=== PATIENT | male | born 1930 | race African-American/Black ===

== ENCOUNTER 2017-01-17 09:41 | Inpatient (IN) | payer MEDICARE ==
[~2017-01-17 09:41] MED LIST: ISOVUE-370 76%-LOCM 1 ML ONE; Iopamidol 370 76% 50 ML VIAL FS ONE
[2017-01-17] MEDS ORDERED: Levofloxacin 500 mg/D5W 100 ml Premix Bag ONE (10:13)
[2017-01-17 10:37] LABS: #Eosinphils 0.3 thou/uL (0.0-0.7); #Lymphocytes 1.4 thou/uL (1.20-3.40); #Monocytes 0.5 thou/uL (0.11-0.59); #Neutrophils 3.7 thou/uL (1.40-6.50); %Basophils 0.6 % (0.0-1.0); %Eosinophils 4.4 % (0.0-10.0); %Monocytes 8.6 % (0.0-10.0); Mean Platelet Volume 7.8 fL (7.4-10.4); Red Blood Cell (RBC) Count 3.83 mill/uL (4.70-6.10); White Blood Cell (WBC) Count 5.9 thou/uL (4.8-10.8)
--- NOTE | 2017-01-17 11:01 | RAD ---
AP VIEW CHEST: HISTORY: Fever. FINDINGS: AP view chest is obtained on 01/17/17. Comparison is made to previous exam from 12/05/14. AP view chest demonstrates the lungs to be well aerated. No evidence of active intrathoracic diseas e is seen. No evidence of effusions, pneumonia, or pneumothorax is seen. IMPRESSION: Unremarkable AP view chest. POS: [facility]
[2017-01-17] MEDS ORDERED: Ondansetron ODT 4 MG TAB SL PRN (11:32)
[2017-01-17] MEDS ORDERED: Ondansetron HCl/PF 4 MG/2 ML Vial IVP PRN (11:32)
[2017-01-17] MEDS ORDERED: Acetaminophen 325 MG TAB PO PRN ×2 (11:32→11:49)
[2017-01-17] MEDS ORDERED: Bisacodyl 5 MG TAB PO PRN (11:49)
[2017-01-17] MEDS ORDERED: Guaifenesin DM 100-10/5 ML UDCUP PO PRN (11:49)
[2017-01-17 11:55] LABS: ALT (SGPT) 35 U/L (8-55); AST (SGOT) 28 U/L (5-34); Alkaline Phosphatase 179 U/L (40-150); Anion Gap 14 mmol/L (10-20); BUN (Urea Nitrogen) 15 mg/dL (8.4-25.7); Bilirubin, Total 0.4 mg/dL (0.2-1.2); CK (CPK) 72 U/L (30-200); Calc. Creatinine Clearance 0 mL/min (70-130); Calcium 9.1 mg/dL (7.8-10.44); Carbon Dioxide 22 mmol/L (23-31); Chloride 108 mmol/L (98-107); Estimated GFR-MDRD 76; Globulin 3.8 g/dL (2.4-3.5); Protein, Total 7.3 g/dL (5.8-8.1)
--- NOTE | 2017-01-17 12:12 | PDOC.EVN ---
Event Note - Event Note Event Note: pt seen and examined . H & P dictated # [id number]
--- NOTE | 2017-01-17 12:23 | RAD ---
TWO VIEWS LEFT HIP: HISTORY: Left hip pain. FINDINGS: AP and frogleg views of the left hip are obtained. Surgical clips seen in the pelvis. A left hip complete orthoplasty is in place. There is a long sh aft component with cables stabilizing the proximal left femur. No evidence of acute fracture or sub luxations seen. Postsurgical changes. POS: [facility]
[2017-01-17 12:33] VITALS: BMI 31.1
--- NOTE | 2017-01-17 13:21 | HP ---
DATE OF SERVICE: 01/17/2017 CHIEF COMPLAINT: Bacteremia. HISTORY OF PRESENT ILLNESS: The patient is an 86-year-old male with a past medical history signific ant for Paget's disease, hypertension, prostate cancer, coronary artery disease, and hyperlipidemia. The patient was in usual state of health when he started having fever and chills. The patient als o has a left hip pain which is chronic with this got flared up in the past 1 week as well. For all this problem, he went to his PCP who did blood cultures and they came back presumptively positive fo r E. coli. For this reason, the patient was sent to the ER to be admitted for IV antibiotic. At th e time of the visit, the patient is comfortable. Patient also states he has been having intermitten t abdominal pain with cramps for past several weeks and is getting an outpatient GI workup. He jennifer es any diarrhea at this time. No abdominal pain at this time. The patient states he does have pros whitaker problems and has multiple urinations during the night. He denies any dysuria, burning or hemat uria. He denies any significant hip or knee pain at this time. Previous records were reviewed. The patient denies any exposure to any sick people. He has not traveled anywhere recently. He says he is acutely short of breath, but at this time currently denies any shortness of breath. FAMILY HISTORY: Reviewed and noncontributory for this admission. PAST MEDICAL HISTORY: The patient does have history of chronic kidney disease. PAST SURGICAL HISTORY: The patient is status post prostatectomy, cardiac catheterization, bilateral knee arthroscopy and left hip replacement x2. The patient is status post cholecystectomy. SOCIAL HISTORY: The patient is retired, lives at home with his family. He denies alcohol, smoking or substance abuse. REVIEW OF SYSTEMS: CONSTITUTIONAL: Fever and chills as mentioned above. No history of weight loss or weight gain. HEENT: No visual disturbance, headache, hearing problems or difficulty chewing or swallowing. No n nile congestion. CARDIAC: No chest pain, palpitations, edema, or syncope. PULMONARY: No wheezing, cough, asthma, hemoptysis. GI: History of intermittent abdominal pain as mentioned above. Denies any constipation, diarrhea, black stools or blood in stools. GENITOURINARY: History of frequent urinations as mentioned above. No history of kidney stones or f lank pain. MUSCULOSKELETAL: As per history of present illness. The patient denies any pain in the right side. He denies any history of gout, rheumatoid disease or lupus. NEUROLOGICAL: No history of dizziness, change in mental status, slurred speech, weakness of any par t of the body, tingling or numbness. HEMATOLOGIC: History of prostate cancer as mentioned above. No history of easy bruising or bleedin g. PHYSICAL EXAMINATION: GENERAL: This is an elderly male in no apparent distress. VITAL SIGNS: His blood pressure is 150/78, pulse rate is 60, respirations are 18, temperature 97.9, O2 sat 96% on room air. HEENT: Normocephalic, atraumatic. Pupils equal, reactive to light and accommodation. No pallor or icterus. Oral cavity shows tongue is central. No central cyanosis or pallor. NECK: Supple, no thyromegaly, no JVD, no bruit. CHEST: Bilaterally clear to auscultation, no rhonchi, no wheezing, no pleural rub. CARDIOVASCULAR SYSTEM: S1, S2 normal. No S3, S4 or murmur. ABDOMEN: Soft, nontender. Bowel sounds active. No guarding or rebound. No free fluid, masses, or ganomegaly. RECTAL: Exam was deferred. EXTREMITIES: The patient has no local hip tenderness at this point. There is no erythema surroundi ng the left hip. Range of motion is limited, associated with pain. Left knee is normal to exam. T here is no pitting pedal edema. NEUROLOGIC: He is awake, alert, oriented x3. LABORATORY DATA: Blood cultures from 01/15/2017, presumption flu positive for E. coli as mentioned above. I do not have the culture sensitivity. Flu test from today is negative. CBC today showed w jose count of 5.1, hemoglobin 11.9, platelet count is 204. PT, PTT is normal. No BMP done today. The patient did have BMP done on 01/15/2017. Sodium was 139, potassium was 3.8, chloride 105, CO2 2 0, anion gap is 10, BUN 14, creatinine 1.51. Glucose was 111. UA done on 01/15/2017 showed pH of 6 . Proteinuria of 30 mg per deciliter, trace ketones, trace blood, bilirubin small. Chest x-ray don e today shows no abnormalities. ASSESSMENT AND PLAN: 1. Escherichia coli bacteremia, likely source urine. 2. History of left hip pain. 3. Paget's disease. 4. Acute renal failure/chronic kidney disease. 5. Hypertension, controlled. 6. History of prostate cancer. 7. Coronary artery disease. 8. Intermittent chronic abdominal pain of uncertain etiology being worked up as outpatient. 9. Mild anemia of chronic disease. DISCUSSION: At this time, patient admitted to medical floor for initiation of antibiotic. The deisi ent will be continued on IV Levaquin started in the emergency room. Likely source of bacteremia is UTI. Await urine report from today. We will also get a left hip x-ray. Although at this time does not appear to be any issue of prosthetic infection, we will get a CT of the abdomen and pelvis give n the fact that he has chronic intermittent abdominal pain and is having bacteremia. This is to rul e out intra-abdominal abscess. We will resume his home medication. We will check a postvoid bladde r scan for any BPH related issues. We will put him on Lovenox for DVT prophylaxis and Protonix for stress ulcer prophylaxis. We will monitor his creatinine levels closely. Further recommendations w ill be made depending on course of clinical events.
--- NOTE | 2017-01-17 13:59 | CT ---
CT CHEST WITH IV CONTRAST CT ABDOMEN AND PELVIS WITH IV AND ORAL CONTRAST: HISTORY: Chest and abdomen pain. Evaluate for abscess. COMPARISON: 12/05/14. FINDINGS: Mild bibasilar atelectasis and scattered tiny nonspecific parenchymal nodules are stable. There is calcification in the arterial structures. No mediastinal adenopathy or empyema are evident. The ga llbladder is surgically absent. Cysts arise from the liver and kidneys. Calcified granulomata are consistent with healed granulomatous disease. The appendix is not inflamed. No bowel obstruction i s apparent. Scattered diverticula arise from the colon without adjacent inflammation. The prostate gland is surgically absent. Urinary bladder is unremarkable. There are degenerative changes of th e lumbar spine. IMPRESSION: 1. No abnormalities are demonstrated to explain infectious symptoms. 2. Mild diverticulosis. No evidence of diverticulitis. 3. Atherosclerosis. 4. Postoperative changes. POS: [facility]
[2017-01-17] MEDS: Sodium Chloride 0.9% 1,000 ML IV SCH (18:07)
[2017-01-17] MEDS: Pravastatin Sodium 40 MG TAB PO SCH (20:34)
[2017-01-17] MEDS: Metoprolol Tartrate 25 MG TAB PO SCH (20:35)
[2017-01-17] MEDS: Docusate 100 MG CAP PO SCH (20:35)
[2017-01-17] MEDS: Famotidine/PF 20 mg/2ml Vial SLOW IVP SCH (20:37)
[2017-01-17] MEDS: Dorzolamide HCl/Timolol Maleate 2%/0.5% Ophth Soln 10 ml Bottle R EYE SCH (22:05)
[2017-01-17] MEDS: cloNIDine HCl 0.1 MG TAB PO SCH (22:05)
[2017-01-17] MEDS: diphenhydrAMINE HCl 25 MG CAP PO SCH (22:05)
[2017-01-17] MEDS: Latanoprost 0.005% Ophth Soln 2.5 ml Bottle EA EYE SCH (22:06)
[2017-01-18 05:04] LABS: #Eosinphils 0.2 thou/uL (0.0-0.7); #Lymphocytes 1.4 thou/uL (1.20-3.40); #Monocytes 0.5 thou/uL (0.11-0.59); #Neutrophils 3.1 thou/uL (1.40-6.50); %Basophils 0.2 % (0.0-1.0); %Eosinophils 4.4 % (0.0-10.0); %Lymphocytes 27.4 % (21.0-51.0); %Monocytes 9.7 % (0.0-10.0); Hematocrit 36.5 % (42.0-52.0); Mean Platelet Volume 7.5 fL (7.4-10.4); Red Blood Cell (RBC) Count 3.74 mill/uL (4.70-6.10); White Blood Cell (WBC) Count 5.3 thou/uL (4.8-10.8)
[2017-01-18 05:18] LABS: Anion Gap 8 mmol/L (10-20); BUN (Urea Nitrogen) 13 mg/dL (8.4-25.7); Calc. Creatinine Clearance 58 mL/min (70-130); Calcium 9.2 mg/dL (7.8-10.44); Carbon Dioxide 26 mmol/L (23-31); Chloride 111 mmol/L (98-107); Estimated GFR-MDRD 79
[2017-01-18] MEDS: Sodium Chloride 0.9% 1,000 ML IV SCH (08:12)
[2017-01-18] MEDS: Multivitamin W/ Minerals 1 TAB PO SCH (08:49)
[2017-01-18] MEDS: cloNIDine HCl 0.1 MG TAB PO SCH ×2 (08:49→20:40)
[2017-01-18] MEDS: Metoprolol Tartrate 25 MG TAB PO SCH ×2 (08:49→20:41)
[2017-01-18] MEDS: Famotidine/PF 20 mg/2ml Vial SLOW IVP SCH ×2 (08:50→20:41)
[2017-01-18] MEDS: Aspirin 81 mg Enteric Coated Tablet PO SCH (08:50)
[2017-01-18] MEDS: Enoxaparin Sodium 40 MG/0.4 ML SYRINGE SC SCH (08:50)
[2017-01-18] MEDS: Docusate 100 MG CAP PO SCH ×2 (08:51→20:40)
[2017-01-18] MEDS: FLUTAMIDE 125 MG PO SCH ×2 (08:56→20:41)
[2017-01-18] MEDS ORDERED: FLU VACC TS2017-18 (>65YR) 0.5 ML SYRINGE IM ONE (09:00)
[2017-01-18] MEDS: Dorzolamide HCl/Timolol Maleate 2%/0.5% Ophth Soln 10 ml Bottle R EYE SCH ×2 (10:13→20:42)
--- NOTE | 2017-01-18 14:15 | PDOC.PN ---
- Subjective Encounter Start Date: 01/18/17 Encounter Start Time: 11:30 Subjective: feels better, no sob/cough/urinary symptoms -: is ambulating in hallway with - Objective MAR Reviewed: Yes Vital Signs & Weight: Vital Signs (12 hours) Temp Pulse Resp BP Pulse Ox 01/18/17 12:00 97.3 F L 61 18 151/72 H 96 01/18/17 08:00 97.9 F 63 18 147/67 H 96 I&O: 01/17/17 01/18/17 01/19/17 06:59 06:59 06:59 Intake Total 1360 Output Total 1950 Balance -590 Result Diagrams: 01/18/17 04:37 01/18/17 04:37 Phys Exam - Physical Examination HEENT: PERRLA, moist MMs Neck: no JVD, supple Respiratory: no wheezing, no rales Cardiovascular: RRR murmur+ Gastrointestinal: soft, non-tender, no distention, positive bowel sounds Musculoskeletal: no edema, pulses present Neurological: non-focal, moves all 4 limbs Psychiatric: A&O x 3 Dx/Plan (1) E coli bacteremia Code(s): R78.81 - BACTEREMIA Status: Acute Comment: unclear source (2) SIRS (systemic inflammatory response syndrome) Code(s): R65.10 - SIRS OF NON-INFECTIOUS ORIGIN W/O ACUTE ORGAN DYSFUNCTION Status: Acute (3) HTN (hypertension) Code(s): I10 - ESSENTIAL (PRIMARY) HYPERTENSION Status: Chronic Qualifiers: Hypertension type: essential hypertension Qualified Code(s): I10 - Essential (primary) hypertension (4) CAD (coronary artery disease) Code(s): I25.10 - ATHSCL HEART DISEASE OF [place] CORONARY ARTERY W/O ANG PCTRS Status: Chronic Qualifiers: Coronary Disease-Associated Artery/Lesion type: [place] artery [place] vs. transplanted heart: [place] heart Associated angina: without angina Qualified Code(s): I25.10 - Atherosclerotic heart disease of [place] coronary artery without angina pectoris (5) Dyslipidemia Code(s): E78.5 - HYPERLIPIDEMIA, UNSPECIFIED Status: Chronic (6) H/O Paget's disease of bone Code(s): Z87.39 - PERSONAL HISTORY OF DISEASES OF THE MS SYS AND CONN TISS Status: Chronic - Plan is on levaquin -: gentle iv hydration for today, dc iv fluids in am -: has murmur clinically, echo -: likely dc plan in am if stable -: CT results noted * . Review of Systems - Medications/Allergies Allergies/Adverse Reactions: Allergies Allergy/AdvReac Type Severity Reaction Status Date / Time codeine Allergy Nausea Verified 10/24/14 11:59 oxycodone HCl Allergy Nausea Verified 10/24/14 11:59 [From OxyContin] TAPE Allergy Uncoded 10/24/14 11:59 Medications: Current Medications Acetaminophen (Tylenol) 650 mg PO Q4H PRN PRN Reason: Headache/Fever or Pain Amlodipine Besylate (Norvasc) 10 mg PO DAILY [facility] Last Admin: 01/18/17 08:49 Dose: 10 mg Aspirin (Ecotrin) 81 mg PO DAILY [facility] Last Admin: 01/18/17 08:50 Dose: 81 mg Bisacodyl (Dulcolax) 10 mg PO DAILYPRN PRN PRN Reason: Constipation Clonidine HCl (Catapres) 0.1 mg PO BID [facility] Last Admin: 01/18/17 08:49 Dose: 0.1 mg Diphenhydramine HCl (Benadryl) 25 mg PO HS [facility] Last Admin: 01/17/17 22:05 Dose: 25 mg Docusate Sodium (Colace) 100 mg PO BID [facility] Last Admin: 01/18/17 08:51 Dose: Not Given Dorzolamide/Timolol (Cosopt 2-0.5% Ophth Soln) 1 drop R EYE BID [facility] Last Admin: 01/18/17 10:13 Dose: 1 drop Enoxaparin Sodium (Lovenox) 40 mg SC 0900 [facility] Last Admin: 01/18/17 08:50 Dose: 40 mg Famotidine (Pepcid) 20 mg SLOW IVP Q12HR [facility] Last Admin: 01/18/17 08:50 Dose: 20 mg Guaifenesin/Dextromethorphan (Robitussin Dm) 15 ml PO Q4H PRN PRN Reason: Cough Levofloxacin 750 mg/ Device 150 mls @ 100 mls/hr IVPB 1100 [facility] Last Admin: 01/18/17 10:10 Dose: 150 mls Iron/Minerals/Multivitamins (Theragran M) 1 tab PO DAILY [facility] Last Admin: 01/18/17 08:49 Dose: 1 tab Latanoprost (Xalatan 0.005% Ophth Soln) 1 drop EA EYE HS [facility] Last Admin: 01/17/17 22:06 Dose: Not Given Metoprolol Tartrate (Lopressor) 25 mg PO BID [facility] Last Admin: 01/18/17 08:49 Dose: 25 mg Pantoprazole Sodium (Protonix) 40 mg PO DAILY [facility] Last Admin: 01/18/17 08:49 Dose: 40 mg Flutamide 125 Mg (Caps) 0 each PO BID [facility] Last Admin: 01/18/17 08:56 Dose: 1 each Pravastatin Sodium (Pravachol) 80 mg PO HS [facility] Last Admin: 01/17/17 20:34 Dose: 80 mg Sodium Chloride (Flush - Normal Saline) 10 ml IVF Q12HR [place] Sodium Chloride (Flush - Normal Saline) 10 ml IVF PRN PRN PRN Reason: Saline Flush
[2017-01-18] MEDS ORDERED: Sodium Chloride 0.9% 1,000 ML IV SCH (14:45)
[2017-01-18] MEDS: Pravastatin Sodium 40 MG TAB PO SCH (20:41)
[2017-01-18] MEDS: diphenhydrAMINE HCl 25 MG CAP PO SCH (20:41)
[2017-01-18] MEDS: Latanoprost 0.005% Ophth Soln 2.5 ml Bottle EA EYE SCH (20:42)
[2017-01-19] MEDS: Famotidine/PF 20 mg/2ml Vial SLOW IVP SCH (08:47)
[2017-01-19] MEDS: Enoxaparin Sodium 40 MG/0.4 ML SYRINGE SC SCH (08:48)
[2017-01-19] MEDS: Aspirin 81 mg Enteric Coated Tablet PO SCH (08:48)
[2017-01-19] MEDS: Docusate 100 MG CAP PO SCH ×2 (08:48→21:24)
[2017-01-19] MEDS: Metoprolol Tartrate 25 MG TAB PO SCH ×2 (08:48→21:24)
[2017-01-19] MEDS: Multivitamin W/ Minerals 1 TAB PO SCH (08:48)
[2017-01-19] MEDS: cloNIDine HCl 0.1 MG TAB PO SCH ×2 (08:48→21:23)
[2017-01-19] MEDS: Dorzolamide HCl/Timolol Maleate 2%/0.5% Ophth Soln 10 ml Bottle R EYE SCH ×2 (08:49→21:25)
[2017-01-19] MEDS: FLUTAMIDE 125 MG PO SCH ×2 (08:49→21:26)
--- NOTE | 2017-01-19 11:37 | PDOC.PN ---
- Subjective Encounter Start Date: 01/19/17 Encounter Start Time: 10:25 Subjective: feels better -: no abd pain or sob - Objective MAR Reviewed: Yes Vital Signs & Weight: Vital Signs (12 hours) Temp Pulse Resp BP Pulse Ox 01/19/17 08:10 97.6 F 66 20 186/72 H 96 01/19/17 08:00 97.6 F 66 20 I&O: 01/18/17 01/19/17 01/20/17 06:59 06:59 06:59 Intake Total 1360 2900 Output Total 1950 800 Balance -590 2100 Result Diagrams: 01/18/17 04:37 01/18/17 04:37 Phys Exam - Physical Examination HEENT: PERRLA, moist MMs Neck: no JVD, supple Respiratory: no wheezing, no rales Cardiovascular: RRR murmur+ Gastrointestinal: soft, non-tender, positive bowel sounds Musculoskeletal: no edema, pulses present Neurological: non-focal, moves all 4 limbs Psychiatric: A&O x 3 Dx/Plan (1) E coli bacteremia Code(s): R78.81 - BACTEREMIA Status: Acute Comment: unclear source (2) SIRS (systemic inflammatory response syndrome) Code(s): R65.10 - SIRS OF NON-INFECTIOUS ORIGIN W/O ACUTE ORGAN DYSFUNCTION Status: Acute (3) HTN (hypertension) Code(s): I10 - ESSENTIAL (PRIMARY) HYPERTENSION Status: Chronic Qualifiers: Hypertension type: essential hypertension Qualified Code(s): I10 - Essential (primary) hypertension (4) CAD (coronary artery disease) Code(s): I25.10 - ATHSCL HEART DISEASE OF [place] CORONARY ARTERY W/O ANG PCTRS Status: Chronic Qualifiers: Coronary Disease-Associated Artery/Lesion type: [place] artery [place] vs. transplanted heart: [place] heart Associated angina: without angina Qualified Code(s): I25.10 - Atherosclerotic heart disease of [place] coronary artery without angina pectoris (5) Dyslipidemia Code(s): E78.5 - HYPERLIPIDEMIA, UNSPECIFIED Status: Chronic (6) H/O Paget's disease of bone Code(s): Z87.39 - PERSONAL HISTORY OF DISEASES OF THE MS SYS AND CONN TISS Status: Chronic - Plan await echo results with murmur -: is on levaquin -: dc plan in am -: to ambulate in hallway as tolerated * . Review of Systems - Medications/Allergies Allergies/Adverse Reactions: Allergies Allergy/AdvReac Type Severity Reaction Status Date / Time codeine Allergy Nausea Verified 10/24/14 11:59 oxycodone HCl Allergy Nausea Verified 10/24/14 11:59 [From OxyContin] TAPE Allergy Uncoded 10/24/14 11:59 Medications: Current Medications Acetaminophen (Tylenol) 650 mg PO Q4H PRN PRN Reason: Headache/Fever or Pain Last Admin: 01/19/17 04:07 Dose: 650 mg Amlodipine Besylate (Norvasc) 10 mg PO DAILY [facility] Last Admin: 01/19/17 08:48 Dose: 10 mg Aspirin (Ecotrin) 81 mg PO DAILY [facility] Last Admin: 01/19/17 08:48 Dose: 81 mg Bisacodyl (Dulcolax) 10 mg PO DAILYPRN PRN PRN Reason: Constipation Clonidine HCl (Catapres) 0.1 mg PO BID [facility] Last Admin: 01/19/17 08:48 Dose: 0.1 mg Diphenhydramine HCl (Benadryl) 25 mg PO HS [facility] Last Admin: 01/18/17 20:41 Dose: 25 mg Docusate Sodium (Colace) 100 mg PO BID [facility] Last Admin: 01/19/17 08:48 Dose: Not Given Dorzolamide/Timolol (Cosopt 2-0.5% Ophth Soln) 1 drop R EYE BID [facility] Last Admin: 01/19/17 08:49 Dose: 1 drop Enoxaparin Sodium (Lovenox) 40 mg SC 0900 [facility] Last Admin: 01/19/17 08:48 Dose: 40 mg Famotidine (Pepcid) 20 mg SLOW IVP Q12HR [facility] Last Admin: 01/19/17 08:47 Dose: 20 mg Guaifenesin/Dextromethorphan (Robitussin Dm) 15 ml PO Q4H PRN PRN Reason: Cough Levofloxacin 750 mg/ Device 150 mls @ 100 mls/hr IVPB 1100 [facility] Last Admin: 01/19/17 10:22 Dose: 150 mls Iron/Minerals/Multivitamins (Theragran M) 1 tab PO DAILY [facility] Last Admin: 01/19/17 08:48 Dose: 1 tab Latanoprost (Xalatan 0.005% Ophth Soln) 1 drop EA EYE HS [facility] Last Admin: 01/18/17 20:42 Dose: 1 drop Metoprolol Tartrate (Lopressor) 25 mg PO BID [facility] Last Admin: 01/19/17 08:48 Dose: 25 mg Pantoprazole Sodium (Protonix) 40 mg PO DAILY [facility] Last Admin: 01/19/17 08:48 Dose: 40 mg Flutamide 125 Mg (Caps) 0 each PO BID [facility] Last Admin: 01/19/17 08:49 Dose: 1 each Pravastatin Sodium (Pravachol) 80 mg PO HS [facility] Last Admin: 01/18/17 20:41 Dose: 80 mg Sodium Chloride (Flush - Normal Saline) 10 ml IVF Q12HR [facility] Last Admin: 01/19/17 08:49 Dose: Not Given Sodium Chloride (Flush - Normal Saline) 10 ml IVF PRN PRN PRN Reason: Saline Flush
[2017-01-19] MEDS: Pravastatin Sodium 40 MG TAB PO SCH (21:23)
[2017-01-19] MEDS: diphenhydrAMINE HCl 25 MG CAP PO SCH (21:24)
[2017-01-19] MEDS: Famotidine 20 MG TAB PO SCH (21:24)
[2017-01-19] MEDS: Latanoprost 0.005% Ophth Soln 2.5 ml Bottle EA EYE SCH (21:25)
[2017-01-20 07:10] VITALS: BP 178/80; TEMP 97.6
[2017-01-20] MEDS: Docusate 100 MG CAP PO SCH (09:21)
[2017-01-20] MEDS: Aspirin 81 mg Enteric Coated Tablet PO SCH (09:22)
[2017-01-20] MEDS: cloNIDine HCl 0.1 MG TAB PO SCH (09:22)
[2017-01-20] MEDS: Famotidine 20 MG TAB PO SCH (09:23)
[2017-01-20] MEDS: Multivitamin W/ Minerals 1 TAB PO SCH (09:23)
[2017-01-20] MEDS: Metoprolol Tartrate 25 MG TAB PO SCH (09:24)
[2017-01-20] MEDS: Enoxaparin Sodium 40 MG/0.4 ML SYRINGE SC SCH (09:24)
[2017-01-20] MEDS: FLUTAMIDE 125 MG PO SCH (09:25)
[2017-01-20] MEDS: Dorzolamide HCl/Timolol Maleate 2%/0.5% Ophth Soln 10 ml Bottle R EYE SCH (09:26)
--- NOTE | 2017-01-20 14:38 | PDOC.PN ---
- Subjective Encounter Start Date: 01/20/17 Encounter Start Time: 11:00 Subjective: no sob, feels better -: is amb in hallway - Objective MAR Reviewed: Yes Vital Signs & Weight: Vital Signs (12 hours) Temp Pulse Resp BP Pulse Ox 01/20/17 08:00 97.6 F 61 16 01/20/17 07:07 97.6 F 61 16 178/80 H 97 I&O: 01/19/17 01/20/17 01/21/17 06:59 06:59 06:59 Intake Total 2900 1300 Output Total 800 500 Balance 2100 800 Result Diagrams: 01/18/17 04:37 01/18/17 04:37 Phys Exam - Physical Examination HEENT: PERRLA, moist MMs Neck: no JVD, supple Respiratory: no wheezing, no rales Cardiovascular: RRR, no significant murmur Gastrointestinal: soft, non-tender, positive bowel sounds Musculoskeletal: no edema, pulses present Neurological: non-focal, moves all 4 limbs Psychiatric: A&O x 3 Dx/Plan (1) E coli bacteremia Code(s): R78.81 - BACTEREMIA Status: Acute Comment: unclear source (2) SIRS (systemic inflammatory response syndrome) Code(s): R65.10 - SIRS OF NON-INFECTIOUS ORIGIN W/O ACUTE ORGAN DYSFUNCTION Status: Acute (3) HTN (hypertension) Code(s): I10 - ESSENTIAL (PRIMARY) HYPERTENSION Status: Chronic Qualifiers: Hypertension type: essential hypertension Qualified Code(s): I10 - Essential (primary) hypertension (4) CAD (coronary artery disease) Code(s): I25.10 - ATHSCL HEART DISEASE OF [place] CORONARY ARTERY W/O ANG PCTRS Status: Chronic Qualifiers: Coronary Disease-Associated Artery/Lesion type: [place] artery [place] vs. transplanted heart: [place] heart Associated angina: without angina Qualified Code(s): I25.10 - Atherosclerotic heart disease of [place] coronary artery without angina pectoris (5) Dyslipidemia Code(s): E78.5 - HYPERLIPIDEMIA, UNSPECIFIED Status: Chronic (6) H/O Paget's disease of bone Code(s): Z87.39 - PERSONAL HISTORY OF DISEASES OF THE MS SYS AND CONN TISS Status: Chronic - Plan echo results reviewed -: left chest wall pain, no zoster signs, CT chest was -ve -: continue levaquin -: dc pt home * .
--- NOTE | 2017-01-21 00:19 | DIS ---
DATE OF ADMISSION: 01/17/2017 DATE OF DISCHARGE: 01/20/2017 DISCHARGE DISPOSITION: To home. PRIMARY DISCHARGE DIAGNOSES: Escherichia coli bacteremia, unclear etiology/systemic inflammatory re sponse syndrome secondary to above. SECONDARY DISCHARGE DIAGNOSES: Hypertension, coronary artery disease, dyslipidemia, and history of Paget's disease. PROCEDURES DONE DURING HOSPITALIZATION: Chest x-ray done showed no acute cardiopulmonary abnormalit ies. CT of chest, abdomen, and pelvic CAT scan done showed no abnormalities to explain infectious s ymptoms. There was mild diverticulosis, but no evidence of diverticulitis. Echo with 2D Doppler do ne showed calcified valves, but no vegetations were seen. There was moderate tricuspid regurgitatio n, mild aortic valve stenosis, EF of 60%-65%. Blood cultures x2 done here did not reveal any growth , but had 04/12 blood culture done at his primary care physician's office, which was positive for E. c rikki. Influenza A and B antigens were negative. CRP was 7.2. Urinalysis done on 01/15/2017, the day, his blood cultures were taken, showed negative nitrite, negative leukocyte esterase, and 0-3 wbc's. DISCHARGE MEDICATIONS: Norvasc 10 mg p.o. daily, aspirin 81 mg p.o. daily, dorzolamide with timolol eyedrops as before twice daily, flutamide as before, latanoprost as before, Levaquin 500 mg p.o. da luz for another 7 days for E. coli bacteremia, metoprolol 25 mg p.o. twice daily, omeprazole 20 mg p .o. daily, pravastatin 80 mg p.o. at bedtime, clonidine 0.1 mg p.o. twice daily, Benadryl 50 mg p.o. at bedtime for insomnia. ALLERGIES: Allergic to OXYCODONE and CODEINE. He is also allergic to TAPE. DISCHARGE PLAN: Patient to follow up with primary care physician in 1 week. BRIEF COURSE DURING HOSPITALIZATION: The patient initially was sent from his primary care physician 's office on the when his blood cultures 04/12 came back positive for E. coli. Patient had compla ints of fever and chills prior to obtaining the cultures. His urinalysis done on the same day as bl ood cultures taken on the did not reveal UTI. In view of this history, he was hospitalized and has had repeat blood cultures done along with imaging studies done. His CT chest, abdomen, and pelv is does not reveal any acute abnormality. Echo with 2D Doppler done showed no vegetations. Clinica lly, he has a murmur likely due to aortic valve sclerosis. He has remained hemodynamically stable, ambulating well, and eating well during his stay here. Based on the cultures drawn on the , E. c rikki has grown and is sensitive to all antibiotics. He needs to continue Levaquin for another 7 days . He is hemodynamically stable and will be shortly discharged home. Please see a [id number] docu mentation on [facility] for the day of discharge.
== END 2017-01-20 13:53 | disposition home or self-care (01) | DRG 872 ==
LOC: ERS 09:41 → T4-B 11:33
PROVIDERS: ADMIT Internal Medicine; ATTEND Internal Medicine
DX: R78.81 Bacteremia (principal); N17.9 Acute kidney failure, unspecified; R65.10 Systemic inflammatory response syndrome (SIRS) of non-infectious origin without acute organ dysfunction; I08.2 Rheumatic disorders of both aortic and tricuspid valves; D63.1 Anemia in chronic kidney disease; M88.9 Osteitis deformans of unspecified bone; B96.20 Unspecified Escherichia coli [E. coli] as the cause of diseases classified elsewhere; I25.10 Atherosclerotic heart disease of native coronary artery without angina pectoris; E78.5 Hyperlipidemia, unspecified; Z85.46 Personal history of malignant neoplasm of prostate; K57.90 Diverticulosis of intestine, part unspecified, without perforation or abscess without bleeding; Z88.5 Allergy status to narcotic agent; Z91.048 Other nonmedicinal substance allergy status; Z96.642 Presence of left artificial hip joint; I12.9 Hypertensive chronic kidney disease with stage 1 through stage 4 chronic kidney disease, or unspecified chronic kidney disease; N18.9 Chronic kidney disease, unspecified
CPT/HCPCS: 36415; 71010; 71260; 74177; 80048; 80053; 81003; 81015; 82550; 85025; 86140; 87040; 87077; 87186; 90471; 90682; 93306; 96365; A4216; G0008; G8978-GP-CI; G8979-GP-CI; G8980-GP-CI; J1650; J1956; Q2036; S0028

== ENCOUNTER 2018-07-12 20:08 | Emergency (ER) | payer MEDICARE ==
--- NOTE | 2018-07-12 21:17 | CT ---
FExam: CT brain PROVIDED CLINICAL HISTORY: Headache COMPARISON: None FINDINGS: The ventricular system is normal in size and morphology. No evidence for intracranial hemorrhage or mass effect. There is a linear lucency involving the posterior arch of C1 left of midline that compat ible with nondisplaced age-indeterminate fracture. The extracranial soft tissues and osseous structur es demonstrate an otherwise unremarkable CT appearance. IMPRESSION: 1. No evidence for intracranial hemorrhage or mass effect. 2. Nondisplaced fracture involving the posterior arch of C1 left of midline. The chronicity of this p rocess is not certain.
--- NOTE | 2018-07-12 21:20 | CT ---
FEXAM: CT cervical spine without contrast PROVIDED CLINICAL HISTORY: Neck pain COMPARISON: None FINDINGS: There is a linear lucency traversing the posterior arch of C1 left of midline, compatible with nondis placed fracture. There is a somewhat indistinct appearance to the fracture margins, suggesting this m ay be a subacute process. No additional fracture is evident. No evidence for traumatic subluxation. E xtensive cervical degenerative changes are seen with areas of canal and foraminal narrowing up to sev ere in degree. No prevertebral soft tissue swelling is evident. The visualized lung apices appear ella ar. IMPRESSION: Nondisplaced fracture involving the posterior arch of C1 left of midline, with CT features suggesting a subacute process. A telephone call regarding these findings was placed to emergency department hyun or to this dictation.
== END 2018-07-12 22:46 | disposition home or self-care (01) ==
LOC: ERS 20:08
DX: S12.031A Nondisplaced posterior arch fracture of first cervical vertebra, initial encounter for closed fracture (principal); E78.5 Hyperlipidemia, unspecified; I10 Essential (primary) hypertension; M88.9 Osteitis deformans of unspecified bone; Z85.46 Personal history of malignant neoplasm of prostate; Z79.82 Long term (current) use of aspirin; Z79.899 Other long term (current) drug therapy; X58.XXXA Exposure to other specified factors, initial encounter
CPT/HCPCS: 70450; 72125

== ENCOUNTER 2018-07-27 15:02 | Outpatient (CLI) | payer MEDICARE ==
--- NOTE | 2018-07-27 15:34 | RAD ---
EXAM: 3 views of the cervical spine HISTORY: Cervical fracture COMPARISON: CT cervical spine 07/12/2018 FINDINGS: AP, lateral, and open mouth odontoid views of the cervical spine shows normal height and al ignment of the vertebral bodies without fracture or subluxation. The C1 fracture seen on CT cannot be visualized on this exam. Moderate degenerative changes are seen with intervertebral disc space oumar rowing and moderate osteophyte formation. No prevertebral soft tissue swelling is seen. IMPRESSION: Degenerative changes of the cervical spine.
== END 2018-07-27 15:03 | disposition home or self-care (01) ==
LOC: TBSIIMAG 15:02
PROVIDERS: ATTEND Surgery
DX: S12.000D Unspecified displaced fracture of first cervical vertebra, subsequent encounter for fracture with routine healing (principal); M47.812 Spondylosis without myelopathy or radiculopathy, cervical region
CPT/HCPCS: 72040

== ENCOUNTER 2018-08-15 21:36 | Observation (INO) | payer MEDICARE ==
[2018-08-15 22:21] LABS: #Eosinphils 0.2 thou/uL (0.0-0.7); #Lymphocytes 1.5 thou/uL (1.20-3.40); #Monocytes 0.7 thou/uL (0.11-0.59); #Neutrophils 4.9 thou/uL (1.40-6.50); %Basophils 0.2 % (0.0-1.0); %Eosinophils 2.2 % (0.0-10.0); %Lymphocytes 20.9 % (21.0-51.0); %Neutrophils 67.6 % (42.0-75.0); Hemoglobin 11.4 g/dL (14.0-18.0); Mean Corpuscular HGB CONC 32.5 g/dL (32.0-36.0); Mean Corpuscular Hemoglobin 32.1 pg (27.0-31.0); Mean Corpuscular Volume 98.8 fL (78.0-98.0); Mean Platelet Volume 7.6 fL (7.4-10.4); Platelet Count 210 thou/uL (130-400); RBC Distribution Width 12.5 % (11.5-14.5); Red Blood Cell (RBC) Count 3.56 mill/uL (4.70-6.10); White Blood Cell (WBC) Count 7.3 thou/uL (4.8-10.8)
--- NOTE | 2018-08-15 22:25 | RAD ---
XR Chest 1 View Portable History: [Chest pain] Comparison: Chest radiograph January 2017 Findings: There are bibasilar airspace opacities. Lungs are hypoinflated. Chronic elevation right hem idiaphragm. No pneumothorax. Severe degenerative change left glenohumeral joint. Impression: Lung hypoinflation with opacities both lung bases may reflect atelectasis. Infection is f elt less likely.
[2018-08-15 22:41] LABS: ALT (SGPT) 33 U/L (8-55); AST (SGOT) 44 U/L (5-34); Albumin 3.9 g/dL (3.4-4.8); Alkaline Phosphatase 167 U/L (40-150); Anion Gap 12 mmol/L (10-20); BUN (Urea Nitrogen) 22 mg/dL (8.4-25.7); Bilirubin, Total 0.4 mg/dL (0.2-1.2); CK (CPK) 83 U/L (30-200); Calc. Creatinine Clearance 0 mL/min (70-130); Calcium 9.3 mg/dL (7.8-10.44); Carbon Dioxide 23 mmol/L (23-31); Chloride 110 mmol/L (98-107); Estimated GFR-MDRD 52; Globulin 2.9 g/dL (2.4-3.5); Glucose 104 mg/dL (83-110); Lipase 61 U/L (8-78); Potassium 4.2 mmol/L (3.5-5.1); Protein, Total 6.8 g/dL (5.8-8.1); Sodium 141 mmol/L (136-145)
[2018-08-15] MEDS ORDERED: Acetaminophen 500 MG TAB ONE (22:56)
[2018-08-15] MEDS ORDERED: Nitroglycerin 2% Ointment 1 INCH/1 GM Packet ONE (22:56)
[2018-08-16 01:35] VITALS: BMI 31.7
[2018-08-16 01:47] LABS: Troponin I Less than 0.010 ng/mL (< 0.028)
[2018-08-16] MEDS ORDERED: Acetaminophen 325 MG TAB PO PRN (02:15)
[2018-08-16] MEDS ORDERED: Ondansetron PF 4 MG/2 ML Vial IVP PRN (02:15)
[2018-08-16] MEDS ORDERED: Ondansetron ODT 4 MG TAB SL PRN (02:15)
[2018-08-16] MEDS ORDERED: Ondansetron ODT 4 MG TAB PO PRN (02:27)
[2018-08-16] MEDS ORDERED: Acetaminophen 500 MG TAB PO PRN (02:27)
[2018-08-16] MEDS ORDERED: traMADol HCl 50 MG TAB PO PRN (02:27)
[2018-08-16] MEDS ORDERED: hydrALAZINE 20 MG/ML VIAL SLOW IVP PRN (02:27)
--- NOTE | 2018-08-16 03:04 | HP ---
CHIEF COMPLAINT: Chest pain. HISTORY OF PRESENT ILLNESS: The patient is a very pleasant 88-year-old male with past medical history significant for mild nonocclusive coronary artery disease per left heart catheterization in 2013 performed by his primary [employer] teacher, Dr. Samaniego, hypertension, stage 3 chronic kidney disease, mild aortic stenosis, who presented to the hospital with complaints of 1-week history of intermittent chest discomfort. The patient stated that his chest discomfort seems to be worsening since he has had issues with his blood pressure. He was seen in Dr. Samaniego's office several weeks ago, and was started on isosorbide mononitrate, however, he did not tolerate this medication secondary to headache. He has since been placed on hydralazine 25 mg b.i.d. in addition to his other antihypertensive regimen, but has still been having some intermittent high blood pressure readings. He states that over the course of the last week, he has noticed some chest pressure that has radiated up into the neck and the left arm. Associated symptoms include shortness of breath. He denies any nausea, palpitations, or diaphoresis. It does seem to be somewhat worsened by exertion. He has also reported some increased fatigue over the past several weeks. Workup in the ER has included an EKG, which showed normal sinus rhythm, no acute ST or T-wave changes. Serial troponin has been negative x2. He is currently chest pain free. Prior cardiac workup includes left heart catheterization as mentioned above, performed by Dr. Samaniego in 2013, which showed some nonocclusive triple-vessel CAD and preserved EF. He states that his last stress test was approximately 2 years ago, and he was told that it was normal at that time. Prior echocardiogram performed in January 2017 showed mild aortic stenosis. REVIEW OF SYSTEMS: 12-point review of systems performed and is negative except that stated above. The patient denies any cough, fever, chills, blood in urine or stool. Largely, the patient has felt well until recently. ALLERGIES: CODEINE, OXYCODONE, HCL, TAPE. CODE STATUS: The patient is a full code, this was discussed with the patient and his . HOME MEDICATIONS: 1. Amlodipine 10 mg one tablet p.o. daily. 2. Aspirin 81 mg daily. 3. Clonidine 0.1 mg p.o. b.i.d. 4. Flexeril 10 mg p.o. b.i.d. 5. Ferrous sulfate 325 mg p.o. q.h.s. 6. Hydralazine 25 mg tablet one tablet p.o. b.i.d. 7. Flutamide 125 mg capsule one tablet p.o. b.i.d. 8. Levsin SL 0.125 mg one tablet daily. 9. Metoprolol tartrate 50 mg tablet one tablet p.o. b.i.d. 10. Tramadol 50 mg tablet one tablet p.o. q.6 hours. 11. P.r.n. sublingual nitroglycerin. PAST MEDICAL HISTORY: Paget's disease, prostate cancer status post prostatectomy, coronary artery disease as mentioned above, cataract, hyperlipidemia, hypertension. PAST SURGICAL HISTORY: Carpal tunnel, prostatectomy, cholecystectomy, cataract removal, left hip replacement x3, bilateral knee procedures. SOCIAL HISTORY: The patient is and lives with his . He has no smoking history. He denies any alcohol or illicit drug use. FAMILY HISTORY: Noncontributory. PHYSICAL EXAMINATION: VITAL SIGNS: Blood pressure 189/89, pulse 81, O2 saturation is 96% on room air, respirations 16. GENERAL: The patient is a well-appearing male, in no distress, appears younger than his stated age. HEENT: Head, atraumatic and normocephalic. Mucous membranes are moist. NECK: No appreciable JVD. Trachea is midline. No carotid bruits. CV: S1 and S2. Regular rate and rhythm. Harsh systolic murmur grade 2/6 consistent with . LUNGS: Regular respiratory rate and pattern. Clear to auscultation bilaterally. ABDOMEN: Positive bowel sounds. Soft, nontender. SKIN: Warm, dry. No rashes. NEUROLOGIC: Cranial nerves 2 through 12 intact. The patient is nonfocal. EXTREMITIES: Trace to +1 edema on the right, which the patient says is chronic. No edema on the left. +2 DP pulses bilaterally. LABORATORY DATA: White blood cell count 7.3, hemoglobin 11.4, hematocrit 35.2, MCV 98.8, platelet count 210. Sodium 141, potassium 4.2, chloride 110, carbon dioxide 23, BUN 22, creatinine 1.53. AST 44, ALT 33, and alkaline phosphatase 167. BNP was 24. Troponin is negative x2. ASSESSMENT: 1. Chest pain consistent with angina, acute coronary syndrome ruled out. Troponin negative and EKG normal, may be related to demand ischemia from labile hypertension. 2. Coronary artery disease, mild/nonobstructive per left heart catheterization in [address] Samaniego. 3. Labile hypertension. 4. Stage 3 chronic kidney disease, stable. Creatinine 1.53. 5. Aortic stenosis, mild per echocardiogram in 2017. 6. Elevated alkaline phosphatase/AST, unclear significance. PLAN: Given the patient's presenting symptoms, we will proceed with nuclear stress test to be performed tomorrow. We will continue his antihypertensive regimen and titrate as necessary. We will go ahead and continue his aspirin and beta isabel. His KILO inhibitor has been stopped in the past secondary to his renal dysfunction. We will obtain fasting lipid panel in the morning, and repeat liver function studies. Depending on results of the stress test, may need to consult the patient's primary [employer] teacher, Dr. Samaniego. Currently, the patient is chest pain free. DVT and GI prophylaxis have been ordered. Further recommendations based on hospital course. Job ID: [id number]
[2018-08-16] MEDS: Nitroglycerin 0.4 MG TAB (25 Tab Bottle) PO PRN ×3 (03:42→03:52)
[2018-08-16 05:37] LABS: Anion Gap 14 mmol/L (10-20); BUN (Urea Nitrogen) 23 mg/dL (8.4-25.7); Calc. Creatinine Clearance 43 mL/min (70-130); Calcium 9.4 mg/dL (7.8-10.44); Carbon Dioxide 22 mmol/L (23-31); Chloride 110 mmol/L (98-107); Cholesterol 163 mg/dl (< 200 Desired); Estimated GFR-MDRD 57; Glucose 128 mg/dL (83-110); HDL Cholesterol 41 mg/dL (>60 Neg Risk); LDL Cholesterol, Calculated 109 mg/dL; Potassium 3.7 mmol/L (3.5-5.1); Sodium 142 mmol/L (136-145); Triglycerides 64 mg/dL (Less than 150)
[2018-08-16 05:42] LABS: Troponin I Less than 0.010 ng/mL (< 0.028)
[2018-08-16 05:45] LABS: ALT (SGPT) 30 U/L (8-55); AST (SGOT) 34 U/L (5-34); Albumin 3.9 g/dL (3.4-4.8); Alkaline Phosphatase 158 U/L (40-150); Bilirubin, Direct 0.2 mg/dL (0.1-0.3); Bilirubin, Total 0.5 mg/dL (0.2-1.2)
[2018-08-16] MEDS ORDERED: hydrALAZINE 25 MG TAB PO SCH (09:00)
[2018-08-16] MEDS ORDERED: Enoxaparin Sodium 30 MG/0.3 ML SYRINGE SC SCH (09:00)
[2018-08-16] MEDS ORDERED: Metoprolol Tartrate 25 MG TAB PO SCH (09:00)
[2018-08-16] MEDS ORDERED: Amlodipine 10 MG TAB PO SCH (09:00)
[2018-08-16] MEDS ORDERED: cloNIDine 0.1 MG TAB PO SCH (09:00)
--- NOTE | 2018-08-16 11:16 | NM ---
MYOCARDIAL PERFUSION SCAN WITH SPECT IMAGING: HISTORY: Chest pain. TECHNIQUE/FINDINGS: Examination is performed using 29 mCi 99m-technetium sestamibi on the stress and 11 on the resting im ages. This shows a normal distribution of radiopharmaceutical. No signs of ischemia or scar. WALL MOTION: There is symmetric contractility to the ventricle. LEFT VENTRICULAR EJECTION FRACTION: The calculated left ventricular ejection fraction is 72%. IMPRESSION: Unremarkable myocardial perfusion scan. POS: FIDELIA
[2018-08-16 11:21] VITALS: BP 135/67; TEMP 97.2
[2018-08-16] MEDS ORDERED: ADENOSINE 60 MG/20 ML VIAL ONE (11:50)
[2018-08-16] MEDS ORDERED: Aspirin 81 mg Enteric Coated Tablet PO SCH (21:00)
[2018-08-16] MEDS ORDERED: Ferrous Sulfate 325 MG TAB PO SCH (21:00)
--- NOTE | 2018-08-17 05:39 | SS ---
DATE OF ADMISSION: 08/16/2018 DATE OF DISCHARGE: 08/16/2018 CHIEF COMPLAINT: Chest pain. HOSPITAL COURSE: The patient was admitted from the emergency room with complaint of chest pain. Reports that it is intermittent and has been ongoing since Wednesday. Reports it initially occurred during walking. Reports it has been occurring more frequently. Last stress test was 2 years ago. Denies any stent placement or surgeries. Reports that he has had some edema to his bilateral lower legs, intermittent for the last month. The patient was admitted to the observation unit and underwent a stress test, which showed an unremarkable myocardial perfusion scan with an EF of 72%. The patient also had a chest x-ray, which showed lung hypoinflation with opacities, which may reflect atelectasis, infection is felt less likely. The patient had 3 troponins, all undetectable. BNP was 24. Lipase 61. Liver enzymes are unremarkable. Triglycerides 64, cholesterol 163, creatinine was initially 1.53, but did improve to 1.42, GFR at baseline. Vital signs remained stable, laboratory stable, patient not currently complaining of any chest pain, palpitations, shortness of breath, was subsequently discharged home. Instructed to follow up with Dr. Cruz within 1 week and to follow up with Dr. Samaniego in the next 1 to 2 weeks. ALLERGIES: CODEINE, OXYCODONE, TAPE. HOME MEDICATIONS: Restarted on discharge include: 1. Amlodipine 10 mg p.o. daily. 2. Aspirin 81 mg p.o. at bedtime. 3. Clonidine 0.1 mg p.o. b.i.d. 4. Flexeril 10 mg p.o. b.i.d. 5. Dorzolamide. 6. Timolol 1 drop to right eye b.i.d. 7. Ferrous sulfate 325 mg p.o. at bedtime. 8. Flutamide 1 tablet 125 mg p.o. b.i.d. 9. Hydralazine 25 mg p.o. b.i.d. 10. Levsin 0.125 mg sublingual as needed for cramping. 11. Latanoprost 1 drop each eye at bedtime. 12. Metoprolol 50 mg p.o. b.i.d. 13. Nitroglycerin 0.4 mg sublingual as needed x3 for chest pain. 14. Tramadol 50 mg p.o. q.6 hours as needed for pain. On this visit, we added Protonix 40 mg p.o. daily until he follows up with PCP, 2 weeks worth were given. PAST MEDICAL HISTORY: 1. Chest pain, etiology unknown. 2. Coronary artery disease. 3. Hypertension. 4. Stage 3 chronic kidney disease, stable. 5. Aortic stenosis mild per echocardiogram in 2017. REVIEW OF SYMPTOMS: The patient reports intermittent chest pain, reports lower leg edema, better today. Denies any palpitations. Denies any abdominal pain. Does report some similar chest pain during the stress test, but has been resolved since he got back. All other symptoms are reviewed and are negative unless mentioned in the hospital course. PHYSICAL EXAMINATION: VITAL SIGNS: Temperature is 98.6, pulse is 78, respirations 16, pO2 sats are 97% on room air, blood pressure 135/67. CONSTITUTIONAL: The patient appears nontoxic, is alert and oriented to person, place, and time. Does not appear in any apparent distress. HEAD: Atraumatic and normocephalic. EYES: Eyelids are normal to inspection. Pupils are equally round and reactive to light. Extraocular muscles are intact. ENT: Mouth exam is normal. Mucous membranes are moist. NECK: Normal range of motion. Trachea is midline. RESPIRATORY: Chest movement is symmetrical. Chest expansion is equal. CARDIOVASCULAR: Heart regular rate and rhythm. There is a 2/6 heart murmur. ABDOMEN: Nontender. Bowel sounds are heard. BACK: Normal range of motion. No tenderness. EXTREMITIES: Upper extremity, normal inspection, normal range of motion. Pulses equal bilaterally. Lower extremities, normal inspection, normal range of motion. Pedal pulses equal bilaterally. NEUROLOGIC: The patient is oriented to person, place, and time. Speech is normal. No focal motor or sensory deficits. SKIN: Warm, dry and normal in color. PSYCHIATRIC: He has a normal affect. He is oriented to person, place, and time. DISPOSITION: To home. DISCHARGE CONDITION: Stable. Referral: The patient is to follow up with Dr. Cruz within [address] Samaniego in the next 2 to 3 weeks. Job ID: [id number]
== END 2018-08-16 14:30 | disposition home or self-care (01) ==
LOC: ERS 21:36 → 2SW 08-16 01:20
PROVIDERS: ADMIT Internal Medicine; ATTEND Internal Medicine
DX: R07.89 Other chest pain (principal); I12.9 Hypertensive chronic kidney disease with stage 1 through stage 4 chronic kidney disease, or unspecified chronic kidney disease; N18.3 Chronic kidney disease, stage 3 (moderate); I35.0 Nonrheumatic aortic (valve) stenosis; I25.10 Atherosclerotic heart disease of native coronary artery without angina pectoris; I34.0 Nonrheumatic mitral (valve) insufficiency; E78.2 Mixed hyperlipidemia; I49.8 Other specified cardiac arrhythmias; G47.33 Obstructive sleep apnea (adult) (pediatric); Z79.82 Long term (current) use of aspirin; Z79.899 Other long term (current) drug therapy; Z88.5 Allergy status to narcotic agent; Z88.8 Allergy status to other drugs, medicaments and biological substances; Z91.048 Other nonmedicinal substance allergy status; Z99.89 Dependence on other enabling machines and devices
CPT/HCPCS: 71045; 78452; 80048; 80053; 80061; 80076; 82550; 83690; 83880; 84484 ×3; 85025; 93005; 93017; 96372; 96374; 99285; A9500; G0378 ×2; 36415; J0153; J0360; J1650